=== PATIENT | male | born 1990 | race African-American/Black ===

== ENCOUNTER 2016-07-16 01:04 | Emergency (ER) | payer OTHER ==
[~2016-07-16] VITALS: Ht 180.3 cm; Wt 84.6 kg
[~2016-07-16 01:04] MED LIST: PREDNISONE10 MG PO
[2016-07-16 03:50] LABS: EOSINOPHIL (%) 0.9 % (0-5); EOSINOPHIL COUNT 0.1 K/uL (0-0.3); HEMATOCRIT 42.2 % (38.0-50.0); IMMATURE GRANULOCYTE (%) 0.1 % (0.0-0.7); INSTRUMENT ABS NEUTROPHIL CT 4.2 K/uL; LYMPHOCYTE COUNT 2.8 K/uL (1.0-2.8); MCH 30.1 PG (29.0-34.0); MCHC 33.9 G/DL (30.0-36.0); MCV 88.8 FL (86-99); MEAN PLAT.VOLUME 9.7 uM^3 (9.0-12.4); MONOCYTE (%) 8.6 % (3-12); MONOCYTE COUNT 0.7 K/uL (0-0.8); NEUTROPHIL (%) 54.4 % (45-76); NEUTROPHIL COUNT 4.2 K/uL (1.8-6.4); PLATELET COUNT 265 K/uL (156-360); RBC DIS.WIDTH-CV 11.9 % (11.8-14.6); RBC DIS.WIDTH-SD 38.9 % (39-53); RED BLOOD COUNT 4.75 M/uL (4.00-5.50); WHITE BLOOD COUNT 7.8 K/uL (4.1-10.2)
[2016-07-16 04:06] LABS: CHLORIDE 109 mEq/L (99-109); POTASSIUM 3.7 mEq/L (3.7-5.4); SODIUM 142 mEq/L (136-147)
[2016-07-16 04:08] LABS: GLUCOSE 90 mg/dL (70-99)
[2016-07-16 04:09] LABS: ANION GAP 11 MEQ/L (2-14)
[2016-07-16 04:10] LABS: TOTAL BILIRUBIN 0.6 mg/dL (0.0-1.0)
[2016-07-16 04:11] LABS: SERUM ETHYL ALCOHOL 192 mg/dL
[2016-07-16 04:12] LABS: ALKALINE PHOSPHATASE 71 IU/L (3-129); GFR ESTIMATE (CALCULATED) > 59 mL/min/
[2016-07-16 04:14] LABS: UREA NITROGEN (BUN) 9 mg/dL (9-23)
[2016-07-16 04:15] LABS: SALICYLATE < 5.0 MG/DL (15-30)
[2016-07-16 11:54] VITALS: BP 110/79
== END 2016-07-16 12:00 | disposition home or self-care (01) ==
LOC: EME 01:04
PROVIDERS: Emergency Medicine
DX: F41.9 Anxiety disorder, unspecified (principal); F32.9 Major depressive disorder, single episode, unspecified; F10.129 Alcohol abuse with intoxication, unspecified; T43.591A Poisoning by other antipsychotics and neuroleptics, accidental (unintentional), initial encounter; F12.90 Cannabis use, unspecified, uncomplicated; R45.1 Restlessness and agitation; Y90.6 Blood alcohol level of 120-199 mg/100 ml; F17.200 Nicotine dependence, unspecified, uncomplicated
CPT/HCPCS: 80053; 81003; 85025; 90837; 99281; 99284; G0480; J1630; J2060; J3486

== ENCOUNTER 2016-10-27 21:27 | Emergency (ER) | payer OTHER ==
[~2016-10-27] VITALS: Ht 190.5 cm; Wt 82.4 kg
[2016-10-27 23:05] LABS: THC CANNABINOIDS PRESUMPTIVE POSITIVE (50 ng/mL)
[2016-10-27 23:06] LABS: ADD MEDTOX COMMENT Y; AMPHETAMINE NEGATIVE (500 ng/mL); BARBITURATES NEGATIVE (200 ng/mL); BENZODIAZEPINES PRESUMPTIVE POSITIVE (150 ng/mL); COCAINE NEGATIVE (150 ng/mL); INTERNAL CONTROLS VALID? YES; METHADONE NEGATIVE (200 ng/mL); METHAMPHETAMINE NEGATIVE (500 ng/mL); OPIATES (MORPHINE) NEGATIVE (100 ng/mL); OXYCODONE NEGATIVE (100 ng/mL); PHENCYCLIDINE NEGATIVE (25 ng/mL); PROPOXYPHENE NEGATIVE (300 ng/mL); TRICYCLIC ANTIDEPRESSANTS NEGATIVE (300 ng/mL)
[2016-10-27 23:30] VITALS: BP 112/84
[2016-10-28 00:49] LABS: BENZODIAZEPINES, URINE SCREEN POSITIVE (200 ng/mL)
== END 2016-10-28 00:43 | disposition left against medical advice (07) ==
LOC: EME 21:27
PROVIDERS: Nurse Practitioner Family
DX: F10.129 Alcohol abuse with intoxication, unspecified (principal); F12.90 Cannabis use, unspecified, uncomplicated; F13.10 Sedative, hypnotic or anxiolytic abuse, uncomplicated; F17.200 Nicotine dependence, unspecified, uncomplicated
CPT/HCPCS: 84999; 99281; 99284; G0480